=== PATIENT | male | born 1980 ===

== ENCOUNTER 2018-08-01 11:50 | Emergency (ER) | payer MEDICAID, OTHER ==
[2018-08-01 11:57] VITALS: TEMP 98.7
[2018-08-01 12:55] LABS: BASO # 0.1 K/uL (0.0-0.2); BASO % 1.2 % (0.0-2.0); EOS # 0.2 K/uL (0.0-0.7); EOS % 2.5 % (0.0-4.0); HEMOGLOBIN 16.2 g/dL (12.0-18.0); LYMPH # 2.8 K/uL (1.0-4.3); LYMPH % 31.4 % (20.0-40.0); MEAN CORPUSCULAR HEMOGLOBIN 30.6 pg (27.0-31.0); MEAN CORPUSCULAR HGB CONC 35.1 g/dL (33.0-37.0); MEAN PLATELET VOLUME 9.3 fL (7.2-11.7); MONO # 0.6 K/uL (0.0-0.8); MONO % 6.4 % (0.0-10.0); NEUT # 5.2 K/uL (1.8-7.0); NEUT % 58.5 % (50.0-75.0); NRBC % 0.2 % (0.0-2.0); RBC 5.29 Mil/uL (4.40-5.90); RED CELL DISTRIBUTION WIDTH 14.1 % (11.5-14.5); WHITE BLOOD COUNT 8.9 K/uL (4.8-10.8)
[2018-08-01 13:04] LABS: ALB/GLOB RATIO 1.4 (1.0-2.1); ALBUMIN 4.8 g/dL (3.5-5.0); ALT/SGPT 37 U/L (21-72); AST/SGOT 29 U/L (17-59); BLOOD UREA NITROGEN 10 mg/dL (9-20); GFR NON-AFRICAN AMERICAN > 60; LIPASE 187 U/L (23-300)
--- NOTE | 2018-08-01 13:05 | C.PDOC ---
History Of Present Illness 37 year old presents to ED complaining of mid sternal chest pain and high blood pressure this morning. Patient reports he checked his blood pressure because of the chest pain. Patient reports his blood pressure was at 271/91 when checked at home. Patient states he takes medication for his blood pressure, but not everyday. Denies fever, chills, nausea, vomiting, shortness of breath, numbness, weakness. Time Seen by Provider: 08/01/18 12:08 Chief Complaint (Nursing): Chest Pain History Per: Patient History/Exam Limitations: no limitations Onset/Duration Of Symptoms: Hrs Current Symptoms Are (Timing): Still Present Past Medical History Reviewed: Historical Data, Nursing Documentation, Vital Signs Vital Signs: Last Vital Signs Temp 98.7 F 08/01/18 11:55 Pulse 101 H 08/01/18 11:55 Resp 18 08/01/18 11:55 BP 177/104 H 08/01/18 11:55 Pulse Ox 98 08/01/18 11:55 - Medical History PMH: Anxiety, Bipolar Disorder, Depression, Hypothyroidism, Seizures Surgical History: No Surg Hx Family History: States: No Known Family Hx - Social History Hx Alcohol Use: No Hx Substance Use: No Review Of Systems Except As Marked, All Systems Reviewed And Found Negative. Constitutional: Negative for: Fever, Chills Cardiovascular: Positive for: Chest Pain Respiratory: Negative for: Cough, Shortness of Breath Gastrointestinal: Negative for: Nausea, Vomiting Neurological: Negative for: Weakness, Numbness Physical Exam - Physical Exam Additional Physical Exam Comments: Constitutional: No acute distress. Head: Normocephalic. Atraumatic. Eyes: PERRL. ENT: Moist mucous membranes. Neck: Supple. Cardiovascular: Regular rate. Radial pulse 2+ bilaterally. Chest: No tenderness. Respiratory: Clear to auscultation bilaterally. GI: Soft. Nontender. Nondistended. Back: No CVA tenderness. Musculoskeletal: No tenderness or swelling of extremities. Skin: No rash. Neurologic: Alert, no focal deficit. When asked if he feels pain to his chest when pressing on it the patient replied he did not. The patient reported he felt the pain in his chest when the doctor pressed near his umbilical region. ED Course And Treatment - Laboratory Results Result Diagrams: 08/01/18 12:46 08/01/18 12:46 O2 Sat by Pulse Oximetry: 98 (RA) Pulse Ox Interpretation: Normal Medical Decision Making Medical Decision Making: Plan: * CT angio * EKG * Labs 1:48pm. Patient refused CT angio. States his chest pain is now gone. I informed patient of risks and benefits of CT angio including radiation, IV contrast, missed diagnosis of dissection likely leading to or permanent disability. Patient was coherent and reasonable and refused CT angio. Crisis evaluated patient, given information and ready for discharge. Patient did not want any further evaluation as he states he came just for his blood pressure and psych medications. Discharged home, f/u PMD, return to ED for worsening pain, dyspnea, vomiting, or any other problem. Disposition - Disposition Disposition: HOME/ ROUTINE Disposition Time: 14:30 Condition: STABLE Instructions: High Blood Pressure in Adults Forms: [facility] (Finnish) - Clinical Impression Clinical Impression: Hypertension - Scribe Statement The provider has reviewed the documentation as recorded by the Ashleyibedith Anthonyed Provider Attestation: All medical record entries made by the Ashleyibedith were at my direction and personally dictated by me. I have reviewed the chart and agree that the record accurately reflects my personal performance of the history, physical exam, medical decision making, and the department course for this patient. I have also personally directed, reviewed, and agree with the discharge instructions and disposition.
[2018-08-01 13:15] LABS: CK-MB 1.13 ng/mL (0.0-3.38)
[2018-08-01] MEDS ORDERED: Iodixanol 320 MG/ML 100 ML BOTTLE IV ONE (13:38)
[2018-08-01 14:07] LABS: SQUAMOUS EPITHIAL 1 /hpf (0-5); URINE BACTERIA RARE (<OCC); URINE BILIRUBIN NEGATIVE (NEGATIVE); URINE BLOOD NEGATIVE (NEGATIVE); URINE CLARITY Clear (Clear); URINE COLOR Yellow (YELLOW); URINE GLUCOSE (UA) NORMAL (Normal); URINE LEUKOCYTE ESTERASE 1+ Leu/uL (Negative); URINE PROTEIN NEGATIVE (NEGATIVE); URINE UROBILINOGEN NORMAL mg/dL (0.2-1.0)
[2018-08-01 14:26] LABS: BARBITURATES, UR NEGATIVE (NEGATIVE); BENZODIAZEPINES, UR NEGATIVE (NEGATIVE); OPIATES, UR NEGATIVE (NEGATIVE); PHENCYCLIDINE, UR NEGATIVE (NEGATIVE)
[2018-08-01 14:47] VITALS: BP 141/95; PULSE 81; RESP 15
--- NOTE | 2018-08-01 15:07 | RAD ---
Date of service: 08/01/2018 HISTORY: chest pain, now resolved COMPARISON: No prior. TECHNIQUE: Chest PA and lateral FINDINGS: LUNGS: Mild venous congestion. Small nodular density at the left lung base may represent confluence of shadows with ribs and vessels. Interval follow-up may be helpful if clinically indicated. PLEURA: No significant pleural effusion identified. No pneumothorax apparent. CARDIOVASCULAR: No atherosclerotic calcification present Normal. OSSEOUS STRUCTURES: No significant abnormalities. VISUALIZED UPPER ABDOMEN: Normal. OTHER FINDINGS: None. IMPRESSION: Mild venous congestion. Small nodular density at the left lung base may represent confluence of shadows with ribs and vessels. Interval follow-up may be helpful if clinically indicated.
[2018-08-01 15:22] VITALS: O2SAT 98
--- NOTE | 2018-08-04 19:30 | CARD ---
APPROVED REPORT Date of service: 08/01/2018 EKG Measurement Heart [id number] <Conclusion> Normal sinus rhythm Possible Left atrial enlargement ST & T wave abnormality, consider lateral ischemia Abnormal ECG
== END 2018-08-01 15:29 | disposition home or self-care (01) ==
LOC: C.ER 11:50
DX: I10 Essential (primary) hypertension (principal)